=== PATIENT | male | born 1945 | race Caucasian/White ===

== ENCOUNTER 2016-10-02 09:49 | Day surgery (SDC) | payer MEDICARE, BC ==
[~2016-10-02] VITALS: Ht 180.3 cm; Wt 88.9 kg
[~2016-10-02 09:49] MED LIST: ACCUPRIL40 MG PO; ALDACTONE 25MG25 MG PO; ALDACTONE50 MG PO; BISOPROLOL 5MG T5 MG PO; BUMEX 1MG TAB1 MG PO; CHEWABLE ASPIRI81 MG PO; DILANTIN 100MG100 MG PO; DYAZIDE CAP (M1 EACH PO; FIBER CON625 MG PO; FOLIC ACID 1MG T1 MG PO; GABAPENTIN300 MG PO; GLYBURIDE1.25 M1 PO; HYDROCODONE/APA1 TA8 PO; KEFLEX 500MG.500 MG PO; LASIX 40MG. TAB40 MG PO; LASIX 80MG. TAB80 MG PO; LISINOPRIL 10MG10 MG PO; LISINOPRIL 5MG T5 MG PO; MAXZIDE 25 MG-31 TAB PO; NITROGLYCERIN0.4 MG SL; PHENYTOIN 100M100 MG PO; PLETAL 100MG T100 MG PO; PRAVASTATIN40 MG PO; PRILOSEC20 MG PO; SERTRALINE 50MG50 MG PO; SPIRONOLACTONE25 MG NG; VITAMIN D1000 IU PO; WARFARIN SOD5 M1 PO; WARFARIN SOD5 MG PO; WARFARIN SODIU2.5 MG PO; [UNRECOGNIZED DRUG - OTHER] PO
--- NOTE | 2016-10-02 11:15 | Operative Note ---
Surgeon/Diagnoses Surgeon/Sales Engagement Manager(s) Date of procedure: 10/02/16 Surgeon: MD Linda Collins Diagnoses Pre-op diagnosis: Poor appetite Weight loss Hemoccult-positive stool Post-op diagnosis Same as preoperative diagnoses, with the addition of the following: Gastritis Sliding hiatal hernia Small shallow antral ulcers Pyloric channel ulcer Procedure Procedure Procedure: Esophagogastroduodenoscopy with biopsy Indications: CHANCE MCKENZIE III is a 71 year-old Male with a history of poor appetite, weight loss, and Hemoccult-positive stools. Recent colonoscopy and barium enema revealed no fixed lesion or large mass defect consistent with malignancy. He returns to schedule esophagogastroduodenoscopy. Findings: Distal esophageal junction at 40 cm Fairly large sliding hiatal hernia Patchy gastritis with signs consistent with patchy atrophic gastritis Small shallow antral ulcers Pyloric channel ulcer Procedure Description: After informed consent was obtained, the patient was taken to the endoscopy suite. Monitored anesthesia care ensued after he was transferred to the LEFT lateral decubitus position. The gastroscope was advanced. The gastroesophageal junction was at 40 cm. The stomach was entered. Retroflexion revealed a fairly large sliding hiatal hernia. Patchy gastritis with signs consistent with atrophic gastritis were noted. Small shallow antral ulcers were noted and multiple biopsies were obtained. A small to moderate pyloric channel ulcer was also noted. No sign of active bleeding or recent blood loss was seen. Multiple biopsies were obtained. No other significant abnormalities within the duodenal bulb/sweep were noted. The gastroscope was carefully removed and the patient was transferred to recovery. EBL (ml): 1 Anesthesia: Monitored anesthesia care Complications: No immediate Specimens: Pyloric channel ulcer Small shallow antral ulcers Disposition Disposition: Stable to recovery from where he will be discharged home. He will follow up in one week. Protonix and Carafate have been added. at [id number]
[2016-10-02 14:22] VITALS: BP 119/70
== END 2016-10-02 12:15 | disposition home or self-care (01) ==
LOC: SDC 09:49
PROVIDERS: Surgery
PROC: 0DB78ZX Excision of Stomach, Pylorus, Via Natural or Artificial Opening Endoscopic, Diagnostic (ICD-10-PCS; principal; 2016-10-02 10:30)
DX: R63.4 Abnormal weight loss (principal); E11.8 Type 2 diabetes mellitus with unspecified complications; R63.0 Anorexia; K44.9 Diaphragmatic hernia without obstruction or gangrene; K25.9 Gastric ulcer, unspecified as acute or chronic, without hemorrhage or perforation

== ENCOUNTER → 2016-12-03 | Outpatient (CLI) | payer MEDICARE, BC ==
[2016-12-03 10:44] LABS: HEMOGLOBIN 15.2 g/dL (14.1-18.0)
== END ==
LOC: LAB 09:32
PROVIDERS: Surgery
DX: K27.9 Peptic ulcer, site unspecified, unspecified as acute or chronic, without hemorrhage or perforation (principal); K29.70 Gastritis, unspecified, without bleeding; K44.9 Diaphragmatic hernia without obstruction or gangrene; Z01.812 Encounter for preprocedural laboratory examination

== ENCOUNTER → 2016-12-11 | Day surgery (SDC) | payer MEDICARE, BC ==
--- NOTE | 2016-12-11 10:45 | Operative Note ---
Surgeon/Diagnoses Surgeon/Ultimate Hoops Scoreboard Operator(s) Date of procedure: 12/11/16 Surgeon: MD Linda Collins Diagnoses Pre-op diagnosis: Peptic ulcer disease Gastritis Sliding hiatal hernia Post-op diagnosis Same Procedure Procedure Procedure: Esophagogastroduodenoscopy with biopsy Indications: CHANCE MCKENZIE III is a 71 year-old Male with a history of shallow antral ulcers and pyloric channel ulcers noted on recent EGD. He was also diagnosed with sliding hiatal hernia. He is on proton pump inhibition, as well as Carafate and is "doing much better". He returns for repeat EGD. Findings: Moderate to severe patchy gastritis evident Ulcerations healed Procedure Description: After informed consent was obtained, the patient was taken to the endoscopy suite. Monitored anesthesia care ensued after he was transferred to the LEFT lateral decubitus position. The gastroscope was advanced. The stomach was entered. Moderate to severe patchy gastritis was encountered. Inflammation was noted, but no ulcerations were seen. Specifically, the ulcerations were noted on prior EGD or healed. An antral biopsy was obtained. An area of increased inflammatory response at the gastroesophageal junction was also biopsied. The gastroscope was carefully removed and the patient was transferred to recovery. EBL (ml): 1 Anesthesia: Monitored anesthesia care Complications: No immediate Specimens: Antral biopsy Gastroesophageal junction biopsy Disposition Disposition: Stable to recovery from where he will be discharged home. He will follow up in one week. at [id number]
[2016-12-11 11:06] VITALS: BP 97/63
== END ==
LOC: SDC 08:54
PROVIDERS: Surgery
PROC: 0DB78ZX Excision of Stomach, Pylorus, Via Natural or Artificial Opening Endoscopic, Diagnostic (ICD-10-PCS; 2016-12-11)
PROC: 0DB48ZX Excision of Esophagogastric Junction, Via Natural or Artificial Opening Endoscopic, Diagnostic (ICD-10-PCS; principal; 2016-12-11 10:00)
DX: K27.9 Peptic ulcer, site unspecified, unspecified as acute or chronic, without hemorrhage or perforation (principal); K44.9 Diaphragmatic hernia without obstruction or gangrene; K29.70 Gastritis, unspecified, without bleeding; E11.9 Type 2 diabetes mellitus without complications